=== PATIENT | female | born 1940 | race Caucasian/White ===

== ENCOUNTER 2017-11-19 12:02 | Emergency (ER) | payer MEDICARE, OTHER ==
[2017-11-19 12:47] VITALS: BP 135/82
--- NOTE | 2017-11-19 13:25 | UC ---
Lower Extremity/Ankle HPI - HPI Summary HPI Summary: left foot pain x 3 days no known injury , + swelling, - History of Current Complaint Chief Complaint: UCLowerExtremity Stated Complaint: LFT ANKLE/FOOT INJURY Time Seen by Provider: 11/19/17 13:04 Hx Obtained From: Patient Hx Last Menstrual Period: n/a Onset/Duration: Gradual Onset, Lasting Days - 3, Still Present Severity Initially: Moderate Severity Currently: Moderate Aggravating Factor(s): Standing, Ambulation Alleviating Factor(s): Rest, Elevation Able to Bear Weight: Yes - Allergies/Home Medications Allergies/Adverse Reactions: Allergies Allergy/AdvReac Type Severity Reaction Status Date / Time Adhesive Tape Allergy Rash Verified 11/19/17 12:47 [place] Blue [facility] Allergy Agitation Verified 11/19/17 12:47 [From Vyvanse] Diphenhydramine Allergy Agitation Verified 11/19/17 12:47 [From Benadryl] Lisdexamfetamine Allergy Agitation Verified 11/19/17 12:47 [From Vyvanse] Metformin Allergy elevated Verified 11/19/17 12:47 LFT Penicillins Allergy swelling Verified 11/19/17 12:47 of face, hands, throat Phenylalanine Allergy Agitation Verified 11/19/17 12:47 Red Dye [From Vyvanse] Allergy Agitation Verified 11/19/17 12:47 Yellow Dye [From Vyvanse] Allergy Agitation Verified 11/19/17 12:47 Home Medications: Home Medications Pravastatin Sodium [Pravachol] 10 mg PO DAILY 11/19/17 [History Confirmed ] PMH/Surg Hx/FS Hx/Imm Hx Endocrine History: Diabetes Respiratory History: COPD - Surgical History Surgical History: Yes Surgery Procedure, Year, and Place: right and left tonsils, gangian cyst from right wrist,knee replacement, breast biopsy, lap coly, umbilical hernia repair - Social History Alcohol Use: Rare Substance Use Type: None Smoking Status (MU): Never Smoked Tobacco Review of Systems Constitutional: Negative Skin: Negative Eyes: Negative ENT: Negative Respiratory: Negative Cardiovascular: Negative Is Patient Immunocompromised?: No All Other Systems Reviewed And Are Negative: Yes Physical Exam Triage Information Reviewed: Yes Appearance: Well-Appearing, No Pain Distress, Well-Nourished Vital Signs: Initial Vital Signs Temp 98.8 F 01/09/18 12:41 Pulse 74 11/19/17 12:41 Resp 18 11/19/17 12:41 BP 135/82 11/19/17 12:41 Pulse Ox 99 11/19/17 12:41 Vital Signs Reviewed: Yes Eyes: Positive: Conjunctiva Clear ENT Exam: Normal ENT: Positive: Normal ENT inspection, Hearing grossly normal, Pharynx normal Neck exam: Normal Neck: Positive: Supple, Nontender, No Lymphadenopathy Respiratory: Positive: Chest non-tender, Lungs clear, Normal breath sounds Cardiovascular: Positive: RRR, No Murmur, Pulses Normal Musculoskeletal Exam: Normal Musculoskeletal: Positive: Strength Intact, ROM Intact, No Edema, Other: - left foot : mild swelling, no erythema, + plantar foot tenderness , Neurological Exam: Normal Skin Exam: Normal Lower Extremity Course/Dx - Differential Dx/Diagnosis Provider Diagnoses: left foot pain Discharge - Discharge Plan Condition: Stable Disposition: HOME Patient Education Materials: Arthralgia (ED) Referrals: Isaías Mishra MD [Primary Care Provider] - 7 Days
--- NOTE | 2017-11-19 13:36 | RAD ---
INDICATION: Bilateral heel and medial tarsal pain x1 week without known injury COMPARISON: None. TECHNIQUE: 3 views of the left foot were obtained. FINDINGS: The adequately corticated bones are properly aligned. Degenerative changes include sclerotic narrowing of the tarsometatarsal joints and mild enthesophyte formation at the origin the plantar fascia on the calcaneal tubercle.. No fracture, dislocation or focal bony abnormality is seen. IMPRESSION: DEGENERATIVE CHANGES DESCRIBED ABOVE WITHOUT RADIOGRAPHICALLY APPARENT ACUTE FRACTURE OR DISLOCATION. If the patient's symptoms persist, follow-up imaging is recommended.
== END 2017-11-19 14:02 | disposition home or self-care (01) ==
LOC: UCCORT 12:02
DX: M79.672 Pain in left foot (principal)
CPT/HCPCS: 99201; G0463